=== PATIENT | female | born 2005 | race American Indian/Alaskan Native ===

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

== ENCOUNTER 2025-05-14 20:45 | Emergency (ER) | payer MEDICAID ==
[2025-05-14 21:12] LABS: PLATELET COUNT,PLT 235 10^3/uL (150-450); RED BLOOD CELL COUNT 4.02 10^6/uL (4.2-5.4); WHITE BLOOD CELL COUNT,WBC 8.4 10^3/uL (5.0-10.0)
[2025-05-14 21:14] LABS: BASOPHILS PERCENT AUTO 0.2 % (0.0-1.0); EOSINOPHILS PERCENT AUTO 2.5 % (1.0-3.0); LYMPHOCYTES PERCENT AUTO 21.4 % (20.5-50.1); MONOCYTES PERCENT AUTO 8.4 % (2-8); NEUTROPHILS PERCENT AUTO 67.5 % (42.2-75.2)
[2025-05-14] MEDS: diphenhydrAMINE 50 MG/ML SDV IVPUSH ONE (21:30)
[2025-05-14 21:31] LABS: ALANINE AMINOTRANSFERASE,ALT 10 U/L (14-59); ASPARTATE AMNIOTRANSFERASE,AST 9 U/L (15-37); BILIRUBIN TOTAL 0.4 mg/dL (0.2-1.0); BLOOD UREA NITROGEN,BUN 7 mg/dL (7-18); CARBON DIOXIDE,CO2 23 mmol/L (21-32); CHLORIDE,CL 108 mmol/L (98-107); CREATININE 0.36 mg/dL (0.55-1.02); EOSINOPHILS PERCENT MAN 2 % (1-3); EST CRCL DRUG DOSING (CG) 207.92 mL/min; GLUCOSE RANDOM 98 mg/dL (70-99); LYMPHOCYTES PERCENT MAN 24 % (20-50); MONOCYTES PERCENT MAN 6 % (2-8); POTASSIUM,K 3.5 mmol/L (3.5-5.1); PROTEIN TOTAL,TP 6.6 g/dL (6.4-8.2); SEG NEUTROPHILS PERCENT MAN 68 % (42-75); SODIUM,NA 142 mmol/L (136-145)
[2025-05-14 21:33] LABS: A/G RATIO 0.50; ESTIMATED GFR 150 mL/min (>=60)
[2025-05-14] MEDS: methylPREDNISolone Sodium Succinate 40 MG/1 ML SDV IVPUSH ONE (21:43)
[2025-05-14] MEDS: Albuterol 0.083% 2.5 MG/3 ML Neb Soln NEB ONE (21:43)
[2025-05-14 22:38] LABS: APPEARANCE,URINE CLEAR (CLEAR); GLUCOSE,URINE NEGATIVE (NEGATIVE); OCCULT BLOOD,URINE TRACE-INTACT (NEGATIVE)
[2025-05-14 22:46] LABS: AMPHETAMINES,URINE NEGATIVE (NEGATIVE); BARBITURATES,URINE NEGATIVE (NEGATIVE); MDMA (ECSTASY), URINE NEGATIVE (NEGATIVE); METHAMPHETAMINES,URINE NEGATIVE (NEGATIVE); OPIATES,URINE NEGATIVE (NEGATIVE); OXYCODONE,URINE NEGATIVE (NEGATIVE); PHENCYCLIDINE,URINE NEGATIVE (NEGATIVE); TCA,URINE NEGATIVE (NEGATIVE)
[2025-05-14 22:51] LABS: SQUAMOUS EPITHELIAL CELLS,UR FEW /HPF (NOT SEEN)
[2025-05-14] MEDS: Take Home: Ondansetron 4 MG Tab.DIS, 5 Tab Pack PO ONE (22:54)
[2025-05-14 23:02] VITALS: BP 111/60; PULSE 90
== END 2025-05-14 22:59 | disposition home or self-care (01) ==
LOC: DL.ED 20:45
DX: O21.9 Vomiting of pregnancy, unspecified (principal); Z79.899 Other long term (current) drug therapy; E88.09 Other disorders of plasma-protein metabolism, not elsewhere classified
CPT/HCPCS: 36415; 80053; 80305; 81001; 83735; 84484; 85025; 87086; 93005; 96361; 96374; 96375; 99285; J1200; J2919; J7040; J7613; Q0162; A9270-GY

== ENCOUNTER 2025-05-15 17:18 | Observation (INO) | payer MEDICAID ==
[2025-05-15 17:34] LABS: BASOPHILS PERCENT AUTO 0.3 % (0.0-1.0); EOSINOPHILS PERCENT AUTO 1.5 % (1.0-3.0); LYMPHOCYTES PERCENT AUTO 24.8 % (20.5-50.1); MONOCYTES PERCENT AUTO 8.5 % (2-8); NEUTROPHILS PERCENT AUTO 64.9 % (42.2-75.2); PLATELET COUNT,PLT 259 10^3/uL (150-450); RED BLOOD CELL COUNT 3.87 10^6/uL (4.2-5.4); WHITE BLOOD CELL COUNT,WBC 9.6 10^3/uL (5.0-10.0)
[2025-05-15] MEDS: diphenhydrAMINE 50 MG/ML SDV IVPUSH ONE ×2 (17:39→22:10)
[2025-05-15 17:54] LABS: ALANINE AMINOTRANSFERASE,ALT 10 U/L (14-59); ASPARTATE AMNIOTRANSFERASE,AST 7 U/L (15-37); BILIRUBIN TOTAL 0.2 mg/dL (0.2-1.0); BLOOD UREA NITROGEN,BUN 11 mg/dL (7-18); CARBON DIOXIDE,CO2 23 mmol/L (21-32); CHLORIDE,CL 108 mmol/L (98-107); CREATININE 0.33 mg/dL (0.55-1.02); GLUCOSE RANDOM 95 mg/dL (70-99); POTASSIUM,K 4.1 mmol/L (3.5-5.1); PROTEIN TOTAL,TP 6.5 g/dL (6.4-8.2); SODIUM,NA 141 mmol/L (136-145)
[2025-05-15 17:55] LABS: A/G RATIO 0.51; ESTIMATED GFR 153 mL/min (>=60)
[2025-05-15 18:55] LABS: APPEARANCE,URINE CLEAR (CLEAR); GLUCOSE,URINE NEGATIVE (NEGATIVE); OCCULT BLOOD,URINE NEGATIVE (NEGATIVE)
[2025-05-15 19:05] LABS: AMPHETAMINES,URINE NEGATIVE (NEGATIVE); BARBITURATES,URINE NEGATIVE (NEGATIVE); MDMA (ECSTASY), URINE NEGATIVE (NEGATIVE); METHAMPHETAMINES,URINE NEGATIVE (NEGATIVE); OPIATES,URINE NEGATIVE (NEGATIVE); OXYCODONE,URINE NEGATIVE (NEGATIVE); PHENCYCLIDINE,URINE NEGATIVE (NEGATIVE); TCA,URINE NEGATIVE (NEGATIVE)
[2025-05-15 19:10] LABS: CREATININE,URINE RAND 43.16 mg/dL (No establ ref range); PROTEIN CREATININE RATIO,URINE 245.6 mg/g (<150.0); PROTEIN,URINE RANDOM 10.6 mg/dL (0.0-11.9)
[2025-05-15] MEDS: Ondansetron 4 MG/2 ML SDV IVPUSH PRN (20:45)
[2025-05-16 09:16] LABS: CREATININE,URINE RAND 87.2 mg/dL (No establ ref range); PROTEIN CREATININE RATIO,URINE 209.9 mg/g (<150.0); PROTEIN,URINE RANDOM 18.3 mg/dL (0.0-11.9)
[2025-05-16] MEDS: Prenatal Multivitamin with Calcium/Folic Acid/Iron Tab PO SCH (10:13)
[2025-05-16] MEDS: diphenhydrAMINE 50 MG/ML SDV IV ONE (11:28)
[2025-05-16] MEDS: diphenhydrAMINE 50 MG/ML SDV ONE (11:36)
[2025-05-16 14:34] VITALS: BP 118/53; PULSE 73
== END 2025-05-16 15:15 | disposition home or self-care (01) ==
LOC: DL.ED 17:18 → DL.MS 19:34
PROVIDERS: ADMIT Student in an Organized Health Care Education/Training Program; ATTEND Student in an Organized Health Care Education/Training Program
DX: O99.891 Other specified diseases and conditions complicating pregnancy (principal); O9A.213 Injury, poisoning and certain other consequences of external causes complicating pregnancy, third trimester; R51.9 Headache, unspecified; O12.13 Gestational proteinuria, third trimester; M54.9 Dorsalgia, unspecified; G89.29 Other chronic pain; O99.013 Anemia complicating pregnancy, third trimester; D50.9 Iron deficiency anemia, unspecified; T45.4X5A Adverse effect of iron and its compounds, initial encounter; Z3A.36 36 weeks gestation of pregnancy; Z79.899 Other long term (current) drug therapy
CPT/HCPCS: 36415; 36430; 59025; 80053; 80305-QW; 81003; 82570; 84156; 85025; 86850; 86900; 86901; 86920; 86922; 87081; 96374; 96375; 96376; 99284; 99285-25; A9270-GY; G0378; J1171; J1200; J2405; J7030; J8540; P9016

== ENCOUNTER 2025-06-02 15:48 | Emergency (ER) | payer MEDICAID ==
[2025-06-02] MEDS: Amoxicillin/Clavulanate K 875-125 MG Tab PO ONE (16:37)
[2025-06-02 16:39] VITALS: BP 122/77; PULSE 68
== END 2025-06-02 16:41 | disposition home or self-care (01) ==
LOC: DL.ED 15:48
DX: O99.513 Diseases of the respiratory system complicating pregnancy, third trimester (principal); J01.00 Acute maxillary sinusitis, unspecified; Z79.899 Other long term (current) drug therapy; Z3A.39 39 weeks gestation of pregnancy
CPT/HCPCS: 99283; A9270

== ENCOUNTER 2025-06-03 09:05 | Inpatient (IN) | payer MEDICAID ==
[2025-06-03 10:19] LABS: APPEARANCE,URINE CLEAR (CLEAR); GLUCOSE,URINE NEGATIVE (NEGATIVE); OCCULT BLOOD,URINE NEGATIVE (NEGATIVE)
[2025-06-03] MEDS ORDERED: Sodium Chloride 0.9% 10 ML Syringe FLUSH PRN ×2 (11:04→18:24)
[2025-06-03] MEDS ORDERED: Carboprost Tromethamine 250 MCG/1 mL Vial IM PRN ×2 (11:04→18:24)
[2025-06-03] MEDS ORDERED: fentaNYL 100 MCG/2 ML SDV IVPUSH PRN (11:04)
[2025-06-03] MEDS ORDERED: Oxytocin/Lactated Ringers 30 UNIT/500 ML BAG IV SCH (11:15)
[2025-06-03 11:40] LABS: PLATELET COUNT,PLT 254.0 10^3/uL (150-450); RED BLOOD CELL COUNT 4.52 10^6/uL (4.2-5.4); WHITE BLOOD CELL COUNT,WBC 5.9 10^3/uL (5.0-10.0)
[2025-06-03] MEDS: Lactated Ringers 1,000 ML IV SCH (12:16)
[2025-06-03 12:43] LABS: ALANINE AMINOTRANSFERASE,ALT 9 U/L (14-59); ASPARTATE AMNIOTRANSFERASE,AST 13 U/L (15-37); BILIRUBIN TOTAL 0.5 mg/dL (0.2-1.0); BLOOD UREA NITROGEN,BUN 8 mg/dL (7-18); CARBON DIOXIDE,CO2 23 mmol/L (21-32); CREATININE 0.36 mg/dL (0.55-1.02); GLUCOSE RANDOM 77 mg/dL (70-99); POTASSIUM,K 4.2 mmol/L (3.5-5.1); PROTEIN TOTAL,TP 6.3 g/dL (6.4-8.2)
[2025-06-03 12:55] LABS: CHLORIDE,CL 106 mmol/L (98-107); LACTATE DEHYDROGENASE,LDH 216 U/L (81-234); SODIUM,NA 139 mmol/L (136-145)
[2025-06-03 12:56] LABS: A/G RATIO 0.58; ESTIMATED GFR 150 mL/min (>=60)
[2025-06-03 12:58] LABS: CREATININE,URINE RAND 101.91 mg/dL (No establ ref range); PROTEIN CREATININE RATIO,URINE 208.0 mg/g (<150.0); PROTEIN,URINE RANDOM 21.2 mg/dL (0.0-11.9)
[2025-06-03] MEDS: Oxytocin/Normal Saline 30 UNIT/500 ML BAG IV SCH (14:34)
[2025-06-03] MEDS ORDERED: Oxytocin 10 Units/1 ML SDV IM PRN (18:24)
[2025-06-03 19:10] LABS: INR 0.9 (0.9-1.2)
[2025-06-03 19:22] LABS: PTT,PARTIAL THROMBOPLSTIN TIME 27.1 SEC (22.0-34.0)
[2025-06-03] MEDS: diphenhydrAMINE 50 MG/ML SDV IV ONE (19:51)
[2025-06-03] MEDS: Benzocaine/Menthol 20%-0.5% Spray 78 GM Cannister TOP PRN (20:08)
[2025-06-03] MEDS: Witch Hazel Medicated Pads 100/Jar TOP PRN (20:09)
[2025-06-04 08:10] LABS: PLATELET COUNT,PLT 220.0 10^3/uL (150-450); RED BLOOD CELL COUNT 4.18 10^6/uL (4.2-5.4); WHITE BLOOD CELL COUNT,WBC 6.9 10^3/uL (5.0-10.0)
[2025-06-04] MEDS: Lactated Ringers 1,000 ML IV ONE (08:20)
[2025-06-04] MEDS: Prenatal Multivitamin with Calcium/Folic Acid/Iron Tab PO SCH (08:28)
[2025-06-04] MEDS: Ondansetron 4 MG/2 ML SDV IVPUSH PRN (14:45)
[2025-06-05 10:45] VITALS: BP 125/77; PULSE 70
[2025-06-05] MEDS ORDERED: fentaNYL 100 MCG/2 ML SDV EPIDUR ONE (12:14)
[2025-06-05] MEDS ORDERED: Ropivacaine 100 ML EPIDUR ONE (12:14)
== END 2025-06-05 12:15 | disposition home or self-care (01) | DRG 806 ==
LOC: DL.OBCHECK 09:05 → DL.OB 11:04 → UNDOADMOB 11:27 → DL.OB 11:27 → OBSVTOIN 17:51
PROVIDERS: ADMIT Family Medicine; ATTEND Family Medicine
PROC: 30233N1 Transfusion of Nonautologous Red Blood Cells into Peripheral Vein, Percutaneous Approach (ICD-10-PCS; principal; 2025-06-03)
PROC: 10907ZC Drainage of Amniotic Fluid, Therapeutic from Products of Conception, Via Natural or Artificial Opening (ICD-10-PCS; principal; 2025-06-03)
PROC: 3E033VJ Introduction of Other Hormone into Peripheral Vein, Percutaneous Approach (ICD-10-PCS; principal; 2025-06-03)
PROC: 3E0R3BZ Introduction of Anesthetic Agent into Spinal Canal, Percutaneous Approach (ICD-10-PCS; principal; 2025-06-03)
PROC: 10H07YZ Insertion of Other Device into Products of Conception, Via Natural or Artificial Opening (ICD-10-PCS; principal; 2025-06-03)
PROC: 10E0XZZ Delivery of Products of Conception, External Approach (ICD-10-PCS; principal; 2025-06-03)
DX: O41.03X0 Oligohydramnios, third trimester, not applicable or unspecified (principal); O72.1 Other immediate postpartum hemorrhage; Z37.0 Single live birth; O99.02 Anemia complicating childbirth; Z3A.39 39 weeks gestation of pregnancy; Z79.899 Other long term (current) drug therapy
CPT/HCPCS: 36415; 36430; 51702; 59025; 59409; 76819; 80053; 81003; 82570; 83615; 84112; 84156; 85027; 85384; 85610; 85730; 86850; 86900; 86901; 86920; 86922; 87210; A9270-GY; J1200; J2210; J2405; J2590; J2795; J3010; J7120; P9016